=== PATIENT | female | born 1985 | race Caucasian/White ===

== ENCOUNTER 2019-03-04 12:15 | Emergency (ER) | payer MEDICAID, OTHER ==
[~2019-03-04] VITALS: Ht 162.6 cm; Wt 75.0 kg
[2019-03-04 13:51] VITALS: BP 132/68
== END 2019-03-04 14:08 | disposition home or self-care (01) ==
LOC: EMS 12:17
DX: M25.462 Effusion, left knee (principal); R03.0 Elevated blood-pressure reading, without diagnosis of hypertension

== ENCOUNTER 2023-09-10 00:14 | Emergency (ER) | payer OTHER ==
[~2023-09-10] VITALS: Ht 162.6 cm; Wt 84.1 kg
[2023-09-10 00:22] VITALS: TEMP 98
[2023-09-10 00:54] LABS: BASOPHILS % (AUTO) 0.9 % (0.0-2.0); EOSINOPHILS % (AUTO) 2.4 % (1.0-6.0); HEMATOCRIT 30.8 % (36-46); HEMOGLOBIN 10.1 g/dL (12.0-16.0); LYMPHOCYTES # (AUTO) 1.8 K/uL (1.0-4.8); LYMPHOCYTES % (AUTO) 24.8 % (22.0-44.0); MEAN CORPUSCULAR HEMOGLOBIN 26.8 pg (26.0-34.0); MEAN CORPUSCULAR HGB CONC 32.7 G/dL (31.0-37.0); MEAN CORPUSCULAR VOLUME 82 fL (80-100); MONOCYTES # (AUTO) 0.4 K/uL (0.1-1.0); MONOCYTES % (AUTO) 5.2 % (2.0-9.0); NEUTROPHILS # (AUTO) 4.8 K/uL (1.8-7.7); NEUTROPHILS % (AUTO) 66.7 % (40.0-70.0); PLATELET COUNT (AUTO) 370 K/uL (150-450); RED BLOOD CELL COUNT(AUTO) 3.77 MIL/uL (4.00-5.20); RED CELL DISTRIBUTION WIDTH 15.3 % (11.5-14.5); WHITE BLOOD COUNT (AUTO) 7.2 K/uL (4.5-11.0)
[2023-09-10 01:10] LABS: ANION GAP 11 mmol/L (8-16); CALCIUM, TOTAL 8.5 mg/dL (8.8-10.5); CARBON DIOXIDE 24 mmol/L (22-29); CHLORIDE 105 mmol/L (98-107); CREATININE 0.72 mg/dL (0.60-1.30); GLOMERULAR FILTR. RATE CALC > 60 mL/min (>60); GLUCOSE,RANDOM 143 mg/dL (70-110); POTASSIUM 3.9 mmol/L (3.5-5.1); SODIUM SERUM 140 mmol/L (136-145); UREA NITROGEN, BLOOD 13 mg/dL (7-18)
[2023-09-10 01:16] LABS: ALANINE AMINOTRANSFERASE 20 U/L (12-78); ALBUMIN 3.6 g/dL (3.4-5.0); ALKALINE PHOSPHATASE 69 U/L (46-116); ASPARTATE AMINOTRANSFERASE 12 U/L (15-37); BILIRUBIN,TOTAL 0.2 mg/dL (0.1-1.0); HCG,QUANTITATIVE 15 mIU/mL (0-6); LIPASE 108 U/L (16-77); TOTAL PROTEIN, SERUM 7.8 g/dL (6.4-8.2)
[2023-09-10] MEDS: ONDANSETRON HCL 4 MG/2 ML VIAL IVP ONE (01:41)
[2023-09-10] MEDS: FAMOTIDINE 20 MG/2 ML VIAL IVP ONE (01:41)
[2023-09-10] MEDS: SODIUM CHLORIDE 0.9% 1,000 ML IV ONE (01:42)
[2023-09-10] MEDS: ACETAMINOPHEN 500 MG TABLET PO ONE (01:42)
[2023-09-10] MEDS ORDERED: IOHEXOL 350 MG/ML 100 ML VIAL ONE (03:11)
[2023-09-10] MEDS ORDERED: SODIUM CHLORIDE 0.9% 100 ML ONE (03:11)
[2023-09-10 03:47] LABS: APPEARANCE,URINE CLEAR (CLEAR); BILIRUBIN,URINE NEGATIVE (NEGATIVE); COLOR,URINE COLORLESS (YELLOW); GLUCOSE, URINE (UA) NEGATIVE (NEGATIVE); KETONES,URINE NEGATIVE (NEGATIVE); LEUKOCYTE ESTERASE ,URINE NEGATIVE (NEGATIVE); NITRATE,URINE NEGATIVE (NEGATIVE); OCCULT BLOOD,URINE NEGATIVE (NEGATIVE); PROTEIN,URINE TRACE mg/dL (NEGATIVE); UROBILINOGEN,URINE <=1.0 mg/dL (<=1.0)
[2023-09-10] MEDS: KETOROLAC TROMETHAMINE 30 MG/ML VIAL IVP ONE (04:11)
[2023-09-10 09:47] VITALS: BP 120/66; PULSE 83; RESP 19
[2023-09-10] MEDS: SIMETHICONE 80 MG CHEWABLE TABLET CHEW ONE (10:17)
== END 2023-09-10 10:21 | disposition home or self-care (01) ==
LOC: EMS 00:14
DX: R10.30 Lower abdominal pain, unspecified (principal); Z79.899 Other long term (current) drug therapy
CPT/HCPCS: 99285; 74177; 96374; 76830; 76856; 96375; 96361; 80053; 83690; 84702; 85025; 36415; 81003; G0480; J3490; J1885; J2405; Q9967; J7030; J7050